=== PATIENT | female | born 1960 | race Caucasian/White ===

== ENCOUNTER 2023-03-06 15:26 | Emergency (ER) | payer MEDICARE, MEDICAID ==
[~2023-03-06] VITALS: Ht 172.7 cm; Wt 65.0 kg
[~2023-03-06 15:26] MED LIST: ACET-75 PO; ALBU18HF2 PO; ASPI-1397 PO; ATOR20TA PO; BUPR-353 PO; CALC-1276 PO; CARV3.122 PO; CLON-570 PO; CLOZ100T13 PO; CLOZ200T8 PO; CLOZ50TA9 PO; DOCU-340 PO; FLO44IN PO; LEVO750T68 PO; MUPI22OI30 TOP; NAPR-1166 PO; OMEP20CA16 PO; PERP16TA5 PO; TIOT4MIS3 PO
[2023-03-06 16:01] VITALS: TEMP 97.8
[2023-03-06] MEDS ORDERED: LORazepam 2 mg/ml vial IV ONE (16:20)
[2023-03-06] MEDS ORDERED: meclizine 12.5mg tablet PO ONE (16:20)
[2023-03-06] MEDS ORDERED: ondansetron/PF 4mg/2ml inj IV ONE (16:20)
[2023-03-06] MEDS ORDERED: normal saline 1000ml 1,000 ML IV ONE (16:20)
[2023-03-06 17:09] LABS: BASOPHILS # (AUTO) 0.1 X10'3 (0-0.2); EOSINOPHILS % (AUTO) 0 % (0-6); HEMATOCRIT 40.2 % (35.0-45.0); LYMPHOCYTES # (AUTO) 2.7 X10'3 (1.1-4.8); LYMPHOCYTES % (AUTO) 29.3 % (21-51); MEAN CORPUSCULAR HEMOGLOBIN 29.6 PG (27.0-31.0); MEAN CORPUSCULAR HGB CONC 32.4 g/dL (33.0-36.5); MEAN CORPUSCULAR VOLUME 91.4 FL (78-98); MEAN PLATELET VOLUME 8.6 FL (7.4-10.4); MONOCYTES # (AUTO) 0.4 X10'3 (0-0.9); MONOCYTES % (AUTO) 4.5 % (2-12); NEUTROPHILS # (AUTO) 5.9 X10'3 (1.8-7.7); NEUTROPHILS % (AUTO) 65.2 % (42-75); PLATELET COUNT 218 X10'3 (140-440); RED CELL DISTRIBUTION WIDTH 14.3 % (11.5-14.5); WHITE BLOOD COUNT 9.1 X10'3 (4.5-11.0)
[2023-03-06 17:15] LABS: ALANINE AMINOTRANSFERASE 126 U/L (12-78); ALBUMIN 3.7 G/DL (3.4-5.0); ALBUMIN/GLOBULIN RATIO 1.3 (1.1-1.5); ALKALINE PHOSPHATASE 115 IU/L (46-116); ANION GAP 9 (8-16); ASPARTATE AMINO TRANSFERASE 59 U/L (10-37); BILIRUBIN,TOTAL 0.4 MG/DL (0.1-1.0); BLOOD UREA NITROGEN 17 MG/DL (7-18); BUN/CREATININE RATIO 19.8 (10.0-20.0); CALCIUM 9.2 MG/DL (8.5-10.1); CHLORIDE 105 MMOL/L (99-107); CREATININE 0.86 MG/DL (0.40-0.90); GLUCOSE 89 MG/DL (70-104); POTASSIUM 3.7 MMOL/L (3.5-5.1); SODIUM 139 MMOL/L (135-145); TOTAL CARBON DIOXIDE 24.7 MMOL/L (24-32); TOTAL PROTEIN 6.6 G/DL (6.4-8.2); eGFR 67 ML/MIN
[2023-03-06 17:20] LABS: ETHANOL < 0.010 GM/DL (0.0-0.010)
[2023-03-06 17:39] VITALS: BP 148/81; PULSE 85; RESP 20; O2SAT 99
[2023-03-06 18:45] LABS: CLARITY,URINE CLEAR (Clear); COLOR,URINE YELLOW (Yellow); GLUCOSE, URINE NEGATIVE (Neg); KETONES,URINE 15 mg/dl (Neg); LEUKOCYTE ESTERASE ,URINE NEGATIVE (Neg); NITRITES, URINE NEGATIVE (Neg); OCCULT BLOOD,URINE NEGATIVE (Neg); PROTEIN,URINE NEGATIVE (Neg); UROBILINOGEN,URINE 0.2 E.U/dL (0.2-1.0)
[2023-03-06 18:53] LABS: UA COLLECTION TYPE CLN CATCH MIDSTREAM
[2023-03-06] MEDS ORDERED: MECL-159 PO ×2 (19:06→20:09)
[2023-03-06 19:07] LABS: URINE AMPHETAMINE SCREEN NEGATIVE (Neg); URINE BARBITUATE SCREEN NEGATIVE (Neg); URINE BENZODIAZEPINES SCREEN NEGATIVE (Neg); URINE CANNABINOID SCREEN NEGATIVE (Neg); URINE COCAINE SCREEN NEGATIVE (Neg); URINE METHADONE SCREEN NEGATIVE (Neg); URINE OPIATE SCREEN NEGATIVE (Neg); URINE PHENCYCLIDINE SCREEN NEGATIVE (Neg)
--- NOTE | 2023-03-06 19:31 | NUR ---
called [facility] to arrange tx back. vlad stated they would have to call their supervisor television chassis repair to ok cab back to facility
== END 2023-03-06 19:56 | disposition home or self-care (01) ==
LOC: ER 15:26
DX: R42 Dizziness and giddiness (principal)
CPT/HCPCS: 36415; 70450; 71045; 80053; 80305; 80320; 81003; 82140; 84484; 85025; 93005; 96361; 96374; 96375; 99285; J2060; J2405; J7030; J8597; C1758

== ENCOUNTER 2023-07-31 13:14 | Outpatient (CLI) | payer MEDICARE, MEDICAID ==
[~2023-07-31 13:14] MED LIST changes: +COL250C PO; -DOCU-340 PO; +MECL-302 PO
== END 2023-07-31 23:59 | disposition home or self-care (01) ==
LOC: RAD 13:14
DX: I51.7 Cardiomegaly (principal); R00.0 Tachycardia, unspecified; Z79.899 Other long term (current) drug therapy
CPT/HCPCS: 93005

== ENCOUNTER 2023-09-25 13:40 | Emergency (ER) | payer MEDICARE, MEDICAID ==
[~2023-09-25] VITALS: Ht 172.7 cm; Wt 60.0 kg
[2023-09-25 15:20] LABS: BASOPHILS % (AUTO) 0.5 % (0-1); EOSINOPHILS % (AUTO) 0 % (0-6); HEMATOCRIT 36.5 % (35.0-45.0); HEMOGLOBIN 12.1 g/dl (12.0-16.0); LYMPHOCYTES # (AUTO) 2.1 X10'3 (1.1-4.8); MEAN CORPUSCULAR HEMOGLOBIN 31.1 PG (27.0-31.0); MEAN CORPUSCULAR HGB CONC 33.2 g/dL (33.0-36.5); MEAN CORPUSCULAR VOLUME 93.6 FL (78-98); MONOCYTES # (AUTO) 0.5 X10'3 (0-0.9); MONOCYTES % (AUTO) 6.4 % (2-12); NEUTROPHILS # (AUTO) 4.6 X10'3 (1.8-7.7); NEUTROPHILS % (AUTO) 64.1 % (42-75); PLATELET COUNT 162 X10'3 (140-440); RED BLOOD COUNT 3.89 X10'6 (4.20-5.60); RED CELL DISTRIBUTION WIDTH 13.9 % (11.5-14.5); WHITE BLOOD COUNT 7.2 X10'3 (4.5-11.0)
[2023-09-25 15:36] LABS: BILIRUBIN,URINE NEGATIVE (Neg); CLARITY,URINE CLEAR (Clear); COLOR,URINE YELLOW (Yellow); GLUCOSE, URINE NEGATIVE (Neg); KETONES,URINE NEGATIVE (Neg); LEUKOCYTE ESTERASE ,URINE TRACE (Neg); NITRITES, URINE NEGATIVE (Neg); OCCULT BLOOD,URINE NEGATIVE (Neg); PROTEIN,URINE NEGATIVE (Neg); UROBILINOGEN,URINE 0.2 E.U/dL (0.2-1.0)
[2023-09-25 15:42] LABS: ANION GAP 8 (8-16); BLOOD UREA NITROGEN 17 MG/DL (7-18); CALCIUM 8.4 MG/DL (8.5-10.1); CHLORIDE 105 MMOL/L (99-107); CREATININE 0.81 MG/DL (0.40-0.90); GLUCOSE 90 MG/DL (70-104); POTASSIUM 3.7 MMOL/L (3.5-5.1); SODIUM 141 MMOL/L (135-145); TOTAL CARBON DIOXIDE 27.7 MMOL/L (24-32); eCRCL 67 ML/MIN; eGFR 71 ML/MIN
[2023-09-25 16:27] LABS: UA COLLECTION TYPE VOIDED
[2023-09-25 16:28] LABS: BACTERIA,URINE FEW /HPF (Neg); RBC,URINE 0-2 /HPF (0-2); SQUAMOUS EPITHELIAL CELL,UR FEW /LPF (FEW); WBC,URINE 0-4 /HPF (0-4)
[2023-09-25 16:50] LABS: PRO BRAIN NATRIURETIC PEPTIDE 192 PG/ML (0-125)
[2023-09-25 22:57] VITALS: BP 145/69; PULSE 83; RESP 16; TEMP 98.1; O2SAT 99
[2023-09-25] MEDS: clonazePAM 1mg tablet PO STA (23:32)
[2023-09-25] MEDS: meclizine 12.5mg tablet PO STA (23:32)
[2023-09-25] MEDS: clozapine 100mg tablet PO STA (23:35)
== END 2023-09-25 23:36 | disposition home or self-care (01) ==
LOC: ER 13:40
DX: E86.0 Dehydration (principal); R42 Dizziness and giddiness; J44.9 Chronic obstructive pulmonary disease, unspecified; E78.00 Pure hypercholesterolemia, unspecified; I10 Essential (primary) hypertension; K21.9 Gastro-esophageal reflux disease without esophagitis; Z79.82 Long term (current) use of aspirin; Z79.899 Other long term (current) drug therapy; Z79.2 Long term (current) use of antibiotics; Z87.891 Personal history of nicotine dependence
CPT/HCPCS: 36415; 71045; 80048; 81001; 83880; 84484; 85025; 87088; 93005; 99285; J8597

== ENCOUNTER 2023-12-06 09:45 | Outpatient (CLI) | payer MEDICARE, MEDICAID | END 2023-12-06 23:59 | disposition home or self-care (01) | LOC: RAD 09:45 | PROVIDERS: ATTEND Nurse Practitioner Psychiatric/Mental Health | DX: I51.7 Cardiomegaly (principal); R00.0 Tachycardia, unspecified; Z79.899 Other long term (current) drug therapy | CPT/HCPCS: 93005 ==